=== PATIENT | female | born 1965 | race Caucasian/White ===

== ENCOUNTER 2017-10-28 21:52 | Emergency (ER) | payer OTHER ==
[2017-10-28] MEDS ORDERED: ASPIRIN 81 MG CHEWABLE TABLET ONE (22:35)
[2017-10-28 22:39] LABS: Absolute Lymphocytes (CBC) 1.5 K/uL (0.7-4.9); Absolute Monocytes 0.6 K/uL (0.1-1.3); Absolute Neutrophil 2.5 K/uL (1.8-8.0); Basophils % 0.8 % (0-1.3); Eosinophils % 7.4 % (0-4.4); Hematocrit 39.4 % (36.0-45.0); MCH 32.5 pg (27.0-35.0); MCV 95.7 fL (80-100); MPV 9.1 fL (7.6-11.3); Monocytes % 11.3 % (3.3-12.3); RBC Red Blood Cell Count 4.12 M/uL (3.86-4.86)
[2017-10-28 22:41] LABS: Protime INR 1.1
--- NOTE | 2017-10-28 22:43 | RAD REPORT ---
EXAM DESCRIPTION: RAD - Chest Single View - 10/28/2017 10:20 pm CLINICAL HISTORY: CHEST PAIN Chest pain. COMPARISON: Chest Pa And Lat (2 Views) dated 04/09/2017; CHEST PA AND LAT 2 VIEW dated 04/25/2004 FINDINGS: Portable technique limits examination quality. The lungs are grossly clear. The heart is normal in size. No displaced fractures. IMPRESSION: No acute intrathoracic process suspected.
[2017-10-28 22:54] LABS: ALT/SGPT 19 U/L (12-78); AST/SGOT 12 U/L (15-37); Albumin 3.7 g/dL (3.4-5.0); Alkaline Phosphatase 46 U/L (45-117); BUN Blood Urea Nitrogen 26 mg/dL (7-18); Bicarbonate 31 mmol/L (21-32); Bilirubin Direct 0.1 mg/dL (0-0.2); Bilirubin Total 0.4 mg/dL (0.2-1.0); Glucose Level 101 mg/dL (74-106); Magnesium 2.5 mg/dL (1.8-2.4); NT PRO-BNP 91 pg/mL (<125); Potassium 3.7 mmol/L (3.5-5.1); Protein, Total 6.9 g/dL (6.4-8.2); Sodium Level 144 mmol/L (136-145); Troponin (Emerg Dept Use Only) < 0.02 ng/mL (0.0-0.045)
--- NOTE | 2017-10-29 01:40 | EDPHYS ---
Physician Documentation [facility] Name: Ayleen Crow Age: 51 yrs Sex: Female : 1965 Arrival Date: 10/28/2017 Time: 21:56 Bed 16 Private MD: Eusebia Camara C ED Physician Darwin Orellana HPI: 10/28 22:21 This 51 yrs old Female presents to ER via Ambulatory with complaints of Chest jr8 Pain. 22:21 The patient or guardian reports chest pain that is located primarily in the substernal jr8 area. Onset: suddenly, 2 day(s) ago. The pain radiates to jaw. Associated signs and symptoms: The patient has no apparent associated signs or symptoms. The chest pain is described as a pressure. Duration: The patient or guardian reports multiple episodes. Modifying factors: The symptoms are alleviated by nothing. the symptoms are aggravated by exertion. Severity of pain: At its worst the pain was moderate in the emergency department the pain has resolved. The patient has not experienced similar symptoms in the past. The patient has not recently seen a physician. 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 - Social history:: Smoking status: Patient/guardian denies using tobacco. - Ebola Screening: : Patient negative for fever greater than or equal to 101.5 degrees Fahrenheit, and additional compatible Ebola Virus Disease symptoms Patient denies exposure to infectious person Patient denies travel to an Ebola-affected area in the 21 days before illness onset. ROS: 22:29 Eyes: Negative for injury, pain, redness, and discharge, ENT: Negative for injury, jr8 pain, and discharge, Neck: Negative for injury, pain, and swelling, Respiratory: Negative for shortness of breath, cough, wheezing, and pleuritic chest pain, Abdomen/GI: Negative for abdominal pain, nausea, vomiting, diarrhea, and constipation, Back: Negative for injury and pain, MS/Extremity: Negative for injury and deformity, Skin: Negative for injury, rash, and discoloration, Neuro: Negative for headache, weakness, numbness, tingling, and seizure. 22:29 Cardiovascular: Positive for chest pain, Negative for edema, orthopnea, palpitations, paroxysmal nocturnal dyspnea. Exam: 22:29 Eyes: Pupils equal round and reactive to light, extra-ocular motions intact. Lids and jr8 lashes normal. Conjunctiva and sclera are non-icteric and not injected. Cornea within normal limits. Periorbital areas with no swelling, redness, or edema. ENT: Nares patent. No nasal discharge, no septal abnormalities noted. Tympanic membranes are normal and external auditory canals are clear. Oropharynx with no redness, swelling, or masses, exudates, or evidence of obstruction, uvula midline. Mucous membranes moist. Neck: Trachea midline, no thyromegaly or masses palpated, and no cervical lymphadenopathy. Supple, full range of motion without nuchal rigidity, or vertebral point tenderness. No Meningismus. Cardiovascular: Regular rate and rhythm with a normal S1 and S2. No gallops, murmurs, or rubs. Normal PMI, no JVD. No pulse deficits. Respiratory: Lungs have equal breath sounds bilaterally, clear to auscultation and percussion. No rales, rhonchi or wheezes noted. No increased work of breathing, no retractions or nasal flaring. Abdomen/GI: Soft, non-tender, with normal bowel sounds. No distension or tympany. No guarding or rebound. No evidence of tenderness throughout. Back: No spinal tenderness. No costovertebral tenderness. Full range of motion. Skin: Warm, dry with normal turgor. Normal color with no rashes, no lesions, and no evidence of cellulitis. MS/ Extremity: Pulses equal, no cyanosis. Neurovascular intact. Full, normal range of motion. Neuro: Awake and alert, GCS 15, oriented to person, place, time, and situation. Cranial nerves II-XII grossly intact. Motor strength 5/5 in all extremities. Sensory grossly intact. Cerebellar exam normal. Normal gait. 22:38 ECG was reviewed by the Attending Physician. 8 Vital Signs: 22:00 BP 150 / 94; Pulse 62; Resp 18; Temp 97.3(O); Pulse Ox 100% on R/A; Weight 56.25 kg fc (R); Height 5 ft. 7 in. (170.18 cm) (R); Pain 0/10; 23:24 BP 135 / 89; Pulse 62; Resp 15; Pulse Ox 97% on R/A; Pain 0/10; ao 10/29 00:37 BP 136 / 92; Pulse 57; Resp 13; Pulse Ox 100% on R/A; Pain 0/10; ao 10/28 22:00 Body Mass Index 19.42 (56.25 kg, 170.18 cm) fc MDM: 10/28 22:05 Patient medically screened. 8 10/29 01:37 HEART Score: History: Moderately Suspicious (1), ECG: Normal (0), Age: > 45 and < 65 jr8 years (1), Risk Factors: No Risk Factors Known (0), Troponin: < or = 1 x Normal Limit (0). The patient was given aspirin in the Emergency Department. Data reviewed: vital signs, nurses notes, lab test result(s), EKG, radiologic studies, plain films, and as a result, I will discharge patient. Data interpreted: Pulse oximetry: on room air is 100 %. Interpretation: normal. 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 ED course: Patient still without chest pain. Hemodynamically stable. Admission was offered but wants to go home and follow up. Return precautions given. 10/28 22:05 Order name: Basic Metabolic Panel; Complete Time: 22:54 8 10/28 22:05 Order name: CBC with Diff; Complete Time: 22:40 8 10/28 22:05 Order name: LFT's; Complete Time: 22:54 8 10/28 22:05 Order name: Magnesium; Complete Time: 22:54 8 10/28 22:05 Order name: NT PRO-BNP; Complete Time: 22:54 8 10/28 22:05 Order name: PT-INR; Complete Time: :54 8 10/28 22:05 Order name: Troponin (emerg Dept Use Only); Complete Time: :54 jr8 10/28 22:33 Order name: D-Dimer; Complete Time: 22:54 EDMS 10/28 22:05 Order name: XRAY Chest (1 view); Complete Time: :54 8 10/28 22:05 Order name: EKG; Complete Time: 22:06 jr8 10/28 22:05 Order name: Cardiac monitoring; Complete Time: 22:26 jr8 10/28 22:05 Order name: EKG - Nurse/Tech; Complete Time: 22: 8 10/28 22:05 Order name: IV Saline Lock; Complete Time: : 8 10/28 22:05 Order name: Labs collected and sent; Complete Time: 22: 8 10/28 22:05 Order name: O2 Per Protocol; Complete Time: 22: 8 10/28 22:05 Order name: O2 Sat Monitoring; Complete Time: 22: 8 10/29 00:48 Order name: EKG - Nurse/Tech; Complete Time: 01:29 ao 10/29 00:48 Order name: Troponin (emerg Dept Use Only); Complete Time: 01:37 ao EC/03 22:38 Rate is 57 beats/min. Rhythm is regular, Sinus bradycardia. QRS [place] is Normal. [place] jr8 interval is normal at 130 msec. QRS interval is normal at 94 msec. QT interval is normal at 406 msec. No Q waves. T waves are Normal. T waves are Flattened in leads V3, V5. No ST changes noted. Clinical impression: NSR w/ Non-specific ST/T Changes and Sinus bradycardia. Interpreted by me. Reviewed by me. Administered Medications: 22:34 Drug: Aspirin Chewable Tablet 324 mg Route: PO; ao 23:16 Follow up: Response: No adverse reaction ao Disposition: 10/29 05:24 Co-signature as Attending Physician, Darwin Orellana MD. pkl Disposition: 10/29/17 01:39 Discharged to Home. Impression: Chest pain, unspecified. - Condition is Stable. - Discharge Instructions: Nonspecific Chest Pain, Aspirin and Your Heart. - Medication Reconciliation Form, Thank You Letter, Antibiotic Education, Prescription Opioid Use form. - Follow up: Edward Acosta MD; When: 1 - 2 days; Reason: Recheck today's complaints, Continuance of care, Re-evaluation by your physician. - Problem is new. - Symptoms are resolved. Signatures: Dispatcher [employer] [facility] Darwin Orellana MD MD pkl Chretien, Felicia RN RN Salvador Marie PA PA jr8 Baudilio Ramirez RN RN ao Corrections: (The following items were deleted from the chart) 10/28 22:33 22:21 D-DIMER+COAG.LAB.BRZ ordered. EDMI EDMI 10/29 02:10 10/28 22:05 Urine Dipstick-Ancillary ordered. jr8 ao 10/29 02:11 01:39 10/29/2017 01:39 Discharged to Home. Impression: Chest pain, unspecified. ao Condition is Stable. Forms are Medication Reconciliation Form, Thank You Letter, Antibiotic Education, Prescription Opioid Use. Follow up: Edward Acosta; When: 1 - 2 days; Reason: Recheck today's complaints, Continuance of care, Re-evaluation by your physician. Problem is new. Symptoms are resolved. jr8
--- NOTE | 2017-10-29 01:40 | ER ---
Nurse's Notes [facility] Name: Ayleen Crow Age: 51 yrs Sex: Female : 1965 Arrival Date: 10/28/2017 Time: 21:56 Bed 16 Private MD: Eusebia Camara C Diagnosis: Chest pain, unspecified Presentation: 10/28 22:00 Presenting complaint: Patient states: that for the past 24 hrs she has been having fc chest pain that radiates to her throat along with shortness of breath and nausea but it has been on and off. When the episodes come they last approx 5-10 minutes. She has been having chest pain with exercise and skipped beats for over a year. Transition of care: patient was not received from another setting of care. Onset of symptoms was October 27, 2017. Risk Assessment: Do you want to hurt yourself or someone else? Patient reports no desire to harm self or others. Initial Sepsis Screen: Does the patient meet any 2 criteria? No. Patient's initial sepsis screen is negative. Does the patient have a suspected source of infection? No. Patient's initial sepsis screen is negative. Care prior to arrival: None. 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 - Social history:: Smoking status: Patient/guardian denies using tobacco. - Ebola Screening: : Patient negative for fever greater than or equal to 101.5 degrees Fahrenheit, and additional compatible Ebola Virus Disease symptoms Patient denies exposure to infectious person Patient denies travel to an Ebola-affected area in the 21 days before illness onset. Screenin:00 Abuse screen: Denies threats or abuse. Nutritional screening: No deficits noted. fc Tuberculosis screening: No symptoms or risk factors identified. Fall Risk None identified. Assessment: 22:20 General: Appears in no apparent distress. comfortable, Behavior is calm, cooperative, ao appropriate for age, Reports chest pain for days. Pain: Complains of pain in chest Pain does not radiate. Pain currently is 5 out of 10 on a pain scale. Quality of pain is described as Pain began 2-3 days ago. Neuro: Level of Consciousness is awake, alert, obeys commands, Oriented to person, place, time, situation, Appropriate for age Moves all extremities. Full function Speech is normal, Facial symmetry appears normal, Pupils are PERRLA. Cardiovascular: Heart tones S1 S2 Capillary refill < 3 seconds Rhythm is sinus bradycardia. Respiratory: Airway is patent Respiratory effort is even, unlabored, Respiratory pattern is regular, symmetrical. GI: Abdomen is flat, non-distended. : No signs and/or symptoms were reported regarding the genitourinary system. EENT: No signs and/or symptoms were reported regarding the EENT system. Derm: Skin is intact, Skin is pink, warm \T\ dry. normal, Skin temperature is warm. Musculoskeletal: Circulation, motion, and sensation intact. Range of motion: intact in all extremities. 23:16 Reassessment: Patient appears in no apparent distress at this time. Patient and/or ao family updated on plan of care and expected duration. Pain level reassessed. Patient is alert, oriented x 3, equal unlabored respirations, skin warm/dry/pink. LYN Franco at bedside going over POC. 10/29 00:37 Reassessment: Patient appears in no apparent distress at this time. Patient and/or ao family updated on plan of care and expected duration. Pain level reassessed. Patient is alert, oriented x 3, equal unlabored respirations, skin warm/dry/pink. Troponin to be draw and EKG to be done. Vital Signs: 10/28 22:00 BP 150 / 94; Pulse 62; Resp 18; Temp 97.3(O); Pulse Ox 100% on R/A; Weight 56.25 kg fc (R); Height 5 ft. 7 in. (170.18 cm) (R); Pain 0/10; 23:24 BP 135 / 89; Pulse 62; Resp 15; Pulse Ox 97% on R/A; Pain 0/10; ao 10/29 00:37 BP 136 / 92; Pulse 57; Resp 13; Pulse Ox 100% on R/A; Pain 0/10; ao 10/28 22:00 Body Mass Index 19.42 (56.25 kg, 170.18 cm) ED Course: 10/28 21:56 Patient arrived in ED. es 21:56 Eusebia Camara MD is Private Physician. es 22:00 Arm band placed on Patient placed in an exam room, on a stretcher. fc 22:00 Patient has correct armband on for positive identification. Placed in gown. Bed in low fc position. Call light in reach. surveillance system monitor on. Pulse ox on. NIBP on. 22:00 No provider procedures requiring assistance completed. Patient maintains SpO2 fc saturation greater than 95% on room air. 22:04 Salvador Rubio PA is PHCP. jr8 22:05 Darwin Orellana MD is Attending Physician. jrNasra 22:05 Baudilio Ramirez, YAJAIRA is Primary Nurse. ao 22:13 Triage completed. fc 22:19 X-ray completed. Portable x-ray completed in exam room. Patient tolerated procedure ml well. 22:20 XRAY Chest (1 view) In Process Unspecified. EDMS 23:45 IV discontinued, intact, bleeding controlled, No redness/swelling at site. Pressure ao dressing applied. Inserted saline lock: 22 gauge in right antecubital area, using aseptic technique. Blood collected. 10/29 01:39 Edward Acosta MD is Referral Physician. jr8 Administered Medications: 10/28 22:34 Drug: Aspirin Chewable Tablet 324 mg Route: PO; ao 23:16 Follow up: Response: No adverse reaction ao Outcome: 10/29 01:39 Discharge ordered by . jrNasra 02:10 Discharged to home ambulatory. ao 02:10 Condition: stable 02:10 Discharge instructions given to patient, Instructed on discharge instructions, follow up and referral plans. Demonstrated understanding of instructions, follow-up care, medications. 02:11 Patient left the ED. ao Signatures: Dispatcher [employer] EDJuana Lima Felicia, RN RN Dior Garcia Salvador Rubio PA PA jrBaudilio Doss RN RN ao
--- NOTE | 2017-10-29 12:20 | EKG ---
Test Date: 2017-10-29 Test Time: 01:02:42 Project Estimator: OMAR MEASUREMENT RESULTS: Intervals: Rate: 57 FL: 122 QRSD: 90 QT: 414 QTc: 402 [place]: P: 67 FL: 122 QRS: 78 T: 85 INTERPRETIVE STATEMENTS: Sinus bradycardia Nonspecific T wave abnormality Abnormal ECG Compared to ECG 10/28/2017 22:12:44 No significant changes Electronically Signed On 10-29-17 12:19:03 CDT by Durga Tamayo
--- NOTE | 2017-10-29 12:21 | EKG ---
Test Date: 2017-10-28 Test Time: 22:12:44 [employer] Supervisor: OMAR MEASUREMENT RESULTS: Intervals: Rate: 57 NV: 130 QRSD: 94 QT: 418 QTc: 406 [place]: P: 59 NV: 130 QRS: 81 T: 88 INTERPRETIVE STATEMENTS: Sinus bradycardia Nonspecific T wave abnormality Abnormal ECG Compared to ECG 03/27/2007 14:49:12 T-wave abnormality now present Short [place] interval no longer present Electronically Signed On 10-29-17 12:19:08 CDT by Durga Tamayo
== END 2017-10-29 02:11 | disposition home or self-care (01) ==
LOC: ER 21:52
DX: R07.9 Chest pain, unspecified (principal); J45.909 Unspecified asthma, uncomplicated; Z91.030 Bee allergy status; Z91.018 Allergy to other foods
CPT/HCPCS: 36415; 71045; 80048; 80076; 83735; 83880; 84484; 85025; 85379; 85610; 93005; 99285